=== PATIENT | female | born 1950 | race Hispanic/Latino ===

== ENCOUNTER 2023-08-02 16:45 | Emergency (ER) | payer OTHER | END 2023-08-02 20:41 | disposition home or self-care (01) | LOC: CSHERS 16:45 | DX: K52.89 Other specified noninfective gastroenteritis and colitis (principal); E11.9 Type 2 diabetes mellitus without complications; I10 Essential (primary) hypertension | CPT/HCPCS: 36415; 74177; 76705; 80053; 81001; 83690; 83735; 85025; 96374; 96375; J2270; J2405; Q9967 ==